=== PATIENT | male | born 1975 | race Caucasian/White ===

== ENCOUNTER 2019-09-08 19:08 | Emergency (ER) | payer BC ==
[~2019-09-08] VITALS: Ht 167.6 cm; Wt 62.1 kg
[2019-09-08] MEDS ORDERED: IBUPROFEN600 MG PO (19:53)
== END 2019-09-08 20:49 | disposition home or self-care (01) ==
LOC: ED 19:08 → EDBD 19:11 → ED 19:11
DX: S93.402A Sprain of unspecified ligament of left ankle, initial encounter (principal); X58.XXXA Exposure to other specified factors, initial encounter; Y93.89 Activity, other specified; Y92.89 Other specified places as the place of occurrence of the external cause; Y99.8 Other external cause status